=== PATIENT | female | born 1975 | race Caucasian/White ===

== ENCOUNTER 2018-10-03 14:48 | Outpatient (REF) | payer OTHER, SELFPAY ==
[2018-10-03 19:33] LABS: TSH (W/Ref FT4) 2.02 uIU/mL (0.358-3.74)
[2018-10-06 09:30] LABS: DHEA Sulfate 121 ug/dl (75-410)
[2018-10-07 16:26] LABS: Testosterone, Free 0.29 ng/dL (0.06-0.98); Testosterone, Total 8.4 ng/dL (8-60)
== END 2018-10-03 15:08 ==
LOC: NCHCN 14:48
PROVIDERS: PCP Family Medicine; Visit Provider Nurse Practitioner Family
DX: E28.2 Polycystic ovarian syndrome (principal)
CPT/HCPCS: 82627; 84402; 84403; 84443

== ENCOUNTER 2019-05-09 08:15 | Outpatient (REF) | payer OTHER, SELFPAY ==
[2019-05-09 14:11] LABS: Anion Gap 12.4 mmol/L (3-11); BUN 14 mg/dL (7-18); CO2 25.6 mmol/L (21.0-32.0); CREATININE 0.97 mg/dL (0.55-1.02); Calcium 9.1 mg/dL (8.5-10.1); Calculated LDL 107 mg/dL; Chloride 104 mmol/L (98-107); Cholesterol 205 mg/dL (50-200); Glucose 109 mg/dL (70-100); HDL Cholesterol 48 mg/dL (40-60); Potassium 4.6 mmol/L (3.5-5.1); Sodium 142 mmol/L (136-145); Triglyceride 253 mg/dL (30-150)
== END 2019-05-09 08:35 ==
LOC: NCHCN 08:15
PROVIDERS: PCP Family Medicine; Visit Provider Nurse Practitioner Family
DX: Z00.00 Encounter for general adult medical examination without abnormal findings (principal); Z13.228 Encounter for screening for other metabolic disorders; Z13.220 Encounter for screening for lipoid disorders
CPT/HCPCS: 80048; 80061; 83721

== ENCOUNTER 2019-09-07 01:53 | Outpatient (CLI) | payer OTHER, SELFPAY ==
--- NOTE | 2019-09-07 08:30 | NS.NUTBLAN_ITS ---
DESCRIPTION:? Yvrose Rey presents for nutrition consult for bariatric surgery preparation.? 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 Yvrose has been successful losing?30 pounds with weight watchers in the past.? She is currently motivated to lose weight because her body hurts, especially hip and back pain; finds it difficult to move. Yvrose admits she has always used food as a tool to deal with emotions.? She expresses concern that she does not know what she will do if she does not have that as a crutch.? She acknowledges how focused she and her family are with food. Yvrose eats no breakfast or supper. She has a large lunch with ordering out, or a sandwich with doritos, chips and dip, pepsi on occasion.? SHe snacks at work much of the day.? She has tracked her food on [employer] and found it helpful in learning what foods really are good for you. Yvrose works 5 days a week and has an overnight shift 3 nights a week as well as school aged children and her .? Her schedule does not allow her time for regular physical activity at this time although she states she is moving at work all day. Weight today: 249.8? Height 64 BMI 42.9 INTERVENTION:? Discussed strategies to improve her nutritional intake by setting boundaries about what types of foods she can eat as a way to cut back on eating so much highly processed food. She does not track her food at this time. She recognizes soda as a problem and will attempt to cut that by 1/2 this month. Discussed principals of mindful eating undistracted, slowly, out of hunger. Discussed ways to increase physical activity with chair exercises at work; walk 5 minutes at lunch, go to pool with daughter on the weekend. PLAN:? Yvrose will: begin to journal her food and hunger? consider swimming on the weekend; doing chair exercise during her day
== END 2019-09-07 02:13 ==
PROVIDERS: PCP Family Medicine; Visit Provider Dietitian, Registered
DX: Z68.41 Body mass index [BMI] 40.0-44.9, adult (principal); E66.3 Overweight; Z71.3 Dietary counseling and surveillance
CPT/HCPCS: 97802

== ENCOUNTER 2019-09-26 01:32 | Outpatient (CLI) | payer OTHER, SELFPAY ==
--- NOTE | 2019-09-26 12:20 | DI.MAMMO_ITS ---
EXAM: MAMMO SCREENING CLINICAL HISTORY: SCREENING Z12.39 TECHNIQUE: Mammograms were interpreted according to the usual protocol including computer analysis w [employer] CAD system, tomosynthesis and C-view imaging. COMPARISON: Current examination is compared with previous examination August 2017 FINDINGS: Breasts are of moderate density with fairly symmetrical distribution of fibroglandular tissue. No do minant mass or clumped microcalcification is identified in either breast. Current examination is com pared with previous examination of August 2017 and there has been no gross interval change in appea alexandra in comparison with previous study. IMPRESSION: No specific evidence of malignancy at this time. Routine screening examinations are suggested at yea rly intervals in this age group according to the ACS/ACR guidelines. Category 1, breast density categ ory BI-RADS Cat 1 - Negative Breast Density - Category B - Scattered areas of fibroglandular density
== END 2019-09-26 01:52 ==
PROVIDERS: PCP Family Medicine; Visit Provider Nurse Practitioner Family
DX: Z12.31 Encounter for screening mammogram for malignant neoplasm of breast (principal)
CPT/HCPCS: 77063; 77067

== ENCOUNTER 2019-10-04 00:38 | Outpatient (CLI) | payer OTHER, SELFPAY ==
--- NOTE | 2019-10-04 15:00 | NS.NUTBLAN_ITS ---
DESCRIPTION: Yvrose Rey presents for nutrition follow up for preparation for bariatric surgery. SInce her first visit she has stopped sugar in her morning beverage and has exchanged soda for seltzer 1-2 liters daily. She comes in with a documented 1 week food log. Food log indicates calorically dense food choices of bread or pasta iwth some protein for lunch and supper; snacks during the day of chocolate, doritos, chips, ice cream. Yvrose has not initiated any physical activity outside of her active job however reports [id number] steps some days. She is busy with appointments for psychiatry and sleep clinic. Weight today 247.6 Height: 64 inches BMI 42.5 INTERVENTION: Discussed changes she can make to improve her nutrient intake and decrease her calories. She expresses some concern regarding her ability to cope without food post-surgery. Discussed triggers for eating; availability of alternative lower calorically dense foods. Discussed coping mechanisms for stress and boredom. Discussed self talk. PLAN: Yvrose will make vegetables available during her work day for snacks; pay attention to her negative self talk We will follow up in 1 month.
== END 2019-10-04 00:58 ==
PROVIDERS: PCP Family Medicine; Visit Provider Dietitian, Registered
DX: E66.2 Morbid (severe) obesity with alveolar hypoventilation (principal); Z68.41 Body mass index [BMI] 40.0-44.9, adult; Z71.3 Dietary counseling and surveillance
CPT/HCPCS: 97803

== ENCOUNTER 2019-11-01 11:45 | Outpatient (CLI) | payer OTHER, SELFPAY ==
--- NOTE | 2019-11-01 08:30 | NS.NUTBLAN_ITS ---
DESCRIPTION: Yvrose presents for follow up nutrition consult for bariatric surgery for her 3rd visit. WEIGHT TODAY: 247.0 HEIGHT: 64 BMI 42.4 Yvrose states she was able to snack on vegetables at work in the afternoon some days, especially carrots and snowpeas. Also snacked on popcorn. Since it was the holidays it was difficult staying away from all the food brought in by patients. She has also refrained from soda and sugar in the coffee. When she goes out to eat she orders unsweetened iced tea. States she has the tools to say no, but does not use them consistently. Discussed family considerations of thin children and overweight daughter and the challenges this poses. She continues to eat about the same except for above changes. She is not tracking her food at this time. She achieves 13,000 steps on slow days at work. She is parking further away from her destination for physical activity. She states she has left hip pain in the bone and has a fear of falling this time of year. Yvrose has started to engage with on-line support groups [employer] and she has a Bariatric Mindset Success book she will be reading. 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 She has become more ready for the surgery and is looking forward to it. Discussed family food concerns and stress of meeting everyone's needs. Encouraged healthy food at all times for everyone in the home. Acknowledge challenges. Discussed how this affects her time with limited and altered foods. PLAN: Yvrose will: continue to work on food issues that will inhibit her success; she will continue to read and access on-line support. She will continue her current physical activity.
== END 2019-11-01 12:05 ==
PROVIDERS: PCP Family Medicine; Visit Provider Dietitian, Registered
DX: E66.8 Other obesity (principal); Z68.41 Body mass index [BMI] 40.0-44.9, adult; Z71.3 Dietary counseling and surveillance
CPT/HCPCS: 97803

== ENCOUNTER 2019-11-19 14:28 | Outpatient (REF) | payer OTHER, SELFPAY ==
[2019-11-19 19:51] LABS: Ferritin 50 ng/mL (8-252)
== END 2019-11-19 14:48 ==
LOC: NCHCN 14:28
PROVIDERS: PCP Family Medicine; Visit Provider Nurse Practitioner Family
DX: G47.9 Sleep disorder, unspecified (principal)
CPT/HCPCS: 82728

== ENCOUNTER 2020-04-09 08:29 | Outpatient (CLI) | payer OTHER, SELFPAY ==
--- NOTE | 2020-04-09 09:50 | DI.RAD_ITS ---
EXAM: XR HIP LT COMPLETE AP PELVIS CLINICAL HISTORY: LT HIP PAIN, M25.552. TECHNIQUE: 2D digital imaging was performed. COMPARISON: No exams were available for comparison FINDINGS: BONES: No acute fracture is present. No bony destructive lesion is seen. JOINTS: No dislocation present. SOFT TISSUE: Normal. IMPRESSION: Unremarkable radiographs of the left hip. Unremarkable radiographs of the pelvis DATA REPOSITORY: RADIATION DOSE DELIVERED:
== END 2020-04-09 08:49 ==
PROVIDERS: PCP Family Medicine; Visit Provider Nurse Practitioner
DX: M25.552 Pain in left hip (principal)
CPT/HCPCS: 73502

== ENCOUNTER 2020-05-08 10:35 | Outpatient (REF) | payer OTHER, SELFPAY ==
[2020-05-08 11:36] LABS: BUN 18 mg/dL (7-18); CREATININE 1.01 mg/dL (0.55-1.02); Calcium 9.4 mg/dL (8.5-10.1); Chloride 101 mmol/L (98-107); Estimated GFR 59.54 (mL/min/1.73m2); Glucose 124 mg/dL (74-106); Potassium 4.4 mmol/L (3.5-5.1); Sodium 137 mmol/L (136-145)
== END 2020-05-08 10:55 ==
LOC: NCHCN 10:35
PROVIDERS: PCP Family Medicine; Visit Provider Nurse Practitioner Family
DX: R73.03 Prediabetes (principal)
CPT/HCPCS: 80048

== ENCOUNTER 2020-06-17 14:13 | Outpatient (REF) | payer OTHER, SELFPAY ==
[2020-06-20 06:16] LABS: SARS-CoV-2 RNA Undetected (Undetected)
== END 2020-06-17 14:33 ==
LOC: NCHCN 14:13
PROVIDERS: PCP Family Medicine; Visit Provider Family Medicine
DX: Z11.59 Encounter for screening for other viral diseases (principal)
CPT/HCPCS: U0003

== ENCOUNTER 2020-09-11 08:15 | Outpatient (REF) | payer OTHER, SELFPAY ==
[2020-09-12 14:58] LABS: SARS-CoV-2 RNA Source Nasal/Nares
[2020-09-12 15:01] LABS: SARS-CoV-2 RNA Not Detected (NotDetected)
== END 2020-09-11 08:35 ==
LOC: NCHCN 08:15
PROVIDERS: PCP Family Medicine; Visit Provider Nurse Practitioner Family
DX: Z11.59 Encounter for screening for other viral diseases (principal)
CPT/HCPCS: U0003

== ENCOUNTER 2020-09-16 08:15 | Outpatient (REF) | payer OTHER, SELFPAY ==
[2020-09-18 18:34] LABS: Patient Race White; SARS-CoV-2 RNA Undetected (Undetected); SARS-CoV-2 Specimen Source Nasal
== END 2020-09-16 08:35 ==
LOC: NCHCN 08:15
PROVIDERS: PCP Family Medicine; Visit Provider Nurse Practitioner Family
DX: Z11.59 Encounter for screening for other viral diseases (principal)
CPT/HCPCS: U0003

== ENCOUNTER 2020-10-09 15:12 | Outpatient (REF) | payer OTHER, SELFPAY ==
[2020-10-10 01:14] LABS: COVID-19 RT-PCR UVMMC Result Negative (Negative)
== END 2020-10-09 15:32 ==
LOC: NCHCN 15:12
PROVIDERS: PCP Family Medicine; Visit Provider Nurse Practitioner Family
DX: Z20.828 Contact with and (suspected) exposure to other viral communicable diseases (principal)
CPT/HCPCS: U0003

== ENCOUNTER 2020-11-11 18:18 | Outpatient (REF) | payer OTHER, SELFPAY ==
[2020-11-13 15:10] LABS: COVID-19 RT-PCR UVMMC Result Negative (Negative)
== END 2020-11-11 18:38 ==
LOC: NCHCN 18:18
PROVIDERS: PCP Family Medicine; Visit Provider Nurse Practitioner Family
DX: Z11.52 Encounter for screening for COVID-19 (principal)
CPT/HCPCS: U0003

== ENCOUNTER 2021-03-18 12:07 | Outpatient (REF) | payer OTHER, SELFPAY ==
--- NOTE | 2021-03-18 11:00 | PAPFT_PTH ---
PATIENT: Yvrose Rey LOC: [facility]#:[id number] AGE/SX: 45/F ROOM: RE03/18/[address]: Sheri Medellin : 1975 BED: DIS: 03/18/2021 SPEC #: [id number] RECD: 03/18/21 18:03 STATUS: VERONICA KOVACS #: [id number] MAXIM: 03/18/21 11:[address]: Sheri Medellin DEPT: [facility] Cytology RECD BY: Lisa Hamilton ENTERED: 03/18/21 18:03 SP TYPE: PAPFT PAULINE DR: Kendell Franco Tissues: 1 - CX/ENDOCX FOR PAP SMEARS Procedures: PAP THIN PREP/[facility] Screening Comments: [id number]
[2021-03-18 16:18] LABS: Anion Gap 11.8 mmol/L (3-11); BUN 15 mg/dL (7-18); CO2 25.2 mmol/L (21.0-32.0); CREATININE 1.1 mg/dL (0.55-1.02); Calcium 9.3 mg/dL (8.5-10.1); Calculated LDL 98 mg/dL (<100); Chloride 102 mmol/L (98-107); Cholesterol 185 mg/dL (<200); Estimated GFR 53.71 (mL/min/1.73m2); Glucose 105 mg/dL (74-106); HDL Cholesterol 45 mg/dL (40-60); Potassium 4.6 mmol/L (3.5-5.1); Sodium 139 mmol/L (136-145); TSH (W/Ref FT4) 1.71 uIU/mL (0.36-3.74); Triglyceride 214 mg/dL (<150)
[2021-03-18 16:38] LABS: Hemoglobin A1C 5.7 % (<5.7)
== END 2021-03-18 12:08 | disposition home or self-care (01) ==
LOC: NCHCN 12:07
PROVIDERS: PCP Family Medicine; Visit Provider Nurse Practitioner Family
DX: Z00.00 Encounter for general adult medical examination without abnormal findings (principal); I10 Essential (primary) hypertension; R73.03 Prediabetes; Z13.220 Encounter for screening for lipoid disorders; Z12.4 Encounter for screening for malignant neoplasm of cervix
CPT/HCPCS: 80048; 80061; 88142; 83036; 84443

== ENCOUNTER 2021-03-19 13:50 | Outpatient (REF) | payer OTHER, SELFPAY ==
--- OUTSIDE RECORDS SUMMARY | 2021-03-19 13:54 | XMS_ITS ---
:1975 Author Care Team Providers Name Role Phone RAFITA HEATH Primary Care Provider [phone] RAFITA HEATH Referring Provider [phone] Allergies Code Code System Name Reaction Severity Status Onset NKDA ? Medications Name Status Start Date Stop Date ? ? albuterol sulfate Completed ? 09/08/2017 2 puffs as needed four times daily buspirone 10 mg tablet Completed ? 6 Take 1 tablet every day by oral route. hydrochlorothiazide 50 mg tablet Completed ? 09/08/2017 Take 1 tablet every day by oral route. lisinopril 20 mg tablet Active ? Not avai lable Take 1 tablet every day by oral route. omeprazole 40 mg capsule,delayed release Active ? Not available Take 1 capsule every day by oral route. Paxil 20 mg tablet Active ? Not available Take 1 tablet every day by oral route. Wellbutrin XL 150 mg 24 hr tablet, extended release Active ? Not available Take 1 tablet twice a day by oral route. Problems Name Status Onset Date Source ? Herpes Zoster Active 07/26/2016 ? Type 2 Diabetes Mellitus Active 07/26/2016 ? Anxiety Active 07/26/2016 ? Depressive Disorder Active 07/26/2016 ? Hypertensive Disorder Active 07/26/2016 ? Asthma Active 07/26/2016 ? Gastroesophageal Reflux Disease Active 07/26/2016 ? Chronic Dermatitis Active 07/26/2016 ? Fracture of Radial Head Active 07/26/2016 ? Environmental Allergy Active 07/26/2016 ? Procedures Date Name Performed by ? 03/15/2017 XR, Foot, 3 or More View Xray [facility] [address], [place] [address] (Work [address]) Notes: Arm Surgery Elbow Surgery Hysterectomy/bladder sling- 11/11/19 17 Results Lab Results None recorded. Past Encounters None recorded. Social History Tobacco Smoking Status Former Smoker (1/2 pack per a Notes : 09/08/17- 1/2 a pack day) Vaccine List None recorded. Plan of Care Reminders Provider Appointments None ? ? recorded. Lab None ? ? recorded. Referral None ? ? recorded. Procedures None ? ? recorded. Surgeries None ? ? recorded. Imaging None ? ? recorded. Vitals 09/08/2017 03:00PM ACUTE Height Weight BMI Blood Pressure 165.1 cm 110.68 kg 40.6 kg/m2 122/58 mm[Hg] 03/17/2017 08:45AM FOLLOW UP Height Weight BMI Blood Pressure 165.1 cm 110.68 kg 40.6 kg/m2 118/58 mm[Hg] 12/23/2016 11:15AM FOLLOW UP Height Weight BMI Blood Pressure 165.1 cm 110.68 kg 40.6 kg/m2 114/68 mm[Hg] 07/28/2016 11:30AM INJECTION Weight Blood Pressure 111.58 kg 106/62 mm[Hg]
[2021-03-19 14:51] LABS: PROTEIN 23.9 mg/dL
[2021-03-19 14:54] LABS: COMMENT (LAB VIEW ONLY) 252.71 mg/dL; Prot/Crea Ur Ratio 0.09
== END 2021-03-19 13:51 | disposition home or self-care (01) ==
LOC: NCHCN 13:50
PROVIDERS: PCP Family Medicine; Visit Provider Physician Assistant Medical
DX: R80.9 Proteinuria, unspecified (principal)
CPT/HCPCS: 82565; 84156

== ENCOUNTER 2021-05-08 03:21 | Outpatient (CLI) | payer OTHER, SELFPAY ==
--- NOTE | 2021-05-08 | DI.MAMMO_ITS ---
Exam(s) MAMMO SCREENING EXAM: MAMMO SCREENING CLINICAL HISTORY: SCREENING, Z12.39 TECHNIQUE: Mammograms were interpreted according to the usual protocol including computer analysis w [employer] CAD system, tomosynthesis and C-view imaging. COMPARISON: 2017 and 2018 FINDINGS: The breasts are composed of scattered fibroglandular densities, Breast Density category B. No suspicious masses or suspicious microcalcifications are seen. No skin thickening or abnormal axillary lymph nodes are seen. There has been no significant change from prior exams. IMPRESSION: BI-RADS Category 1, Negative mammogram Yearly screening mammography is recommended. Breast Density - Category B, scattered fibroglandular densities. A negative radiographic report should not delay biopsy if a dominant or clinically suspicious mass is present. Up to ten percent of cancers are not identified on mammography. A negative report may reinforce clinical impression. Adenosis and dense breasts may obscure an underlying neoplasm. False positive reports average 6 to 10%. Patient will receive a letter notifying them of these results.
== END 2021-05-08 03:41 ==
PROVIDERS: PCP Family Medicine; Visit Provider Nurse Practitioner Family
DX: Z12.31 Encounter for screening mammogram for malignant neoplasm of breast (principal); R92.8 Other abnormal and inconclusive findings on diagnostic imaging of breast
CPT/HCPCS: 77063; 77067

== ENCOUNTER 2021-06-04 14:18 | Outpatient (REF) | payer OTHER, SELFPAY ==
[2021-06-05 11:48] LABS: COVID-19 RT-PCR UVMMC Result Negative (Negative)
== END 2021-06-04 14:19 | disposition home or self-care (01) ==
LOC: LBN 14:18
PROVIDERS: PCP Family Medicine; Visit Provider Physician Assistant Medical
DX: Z20.822 Contact with and (suspected) exposure to COVID-19 (principal)
CPT/HCPCS: U0003

== ENCOUNTER 2021-06-15 19:12 | Outpatient (REF) | payer OTHER, SELFPAY ==
[2021-06-17 13:56] LABS: COVID-19 RT-PCR UVMMC Result Negative (Negative)
== END 2021-06-15 19:13 | disposition home or self-care (01) ==
LOC: LBN 19:12
PROVIDERS: PCP Family Medicine; Visit Provider Nurse Practitioner Family
DX: Z20.822 Contact with and (suspected) exposure to COVID-19 (principal)
CPT/HCPCS: U0003

== ENCOUNTER 2021-06-24 18:28 | Outpatient (REF) | payer OTHER, SELFPAY ==
[2021-06-25 20:23] LABS: COVID-19 RT-PCR UVMMC Result Negative (Negative)
== END 2021-06-24 18:29 | disposition home or self-care (01) ==
LOC: LBN 18:28
PROVIDERS: PCP Family Medicine; Visit Provider Nurse Practitioner Family
DX: Z11.52 Encounter for screening for COVID-19 (principal); Z20.822 Contact with and (suspected) exposure to COVID-19
CPT/HCPCS: U0003

== ENCOUNTER 2021-07-03 17:36 | Outpatient (REF) | payer OTHER, SELFPAY ==
[2021-07-04 14:28] LABS: COVID-19 RT-PCR UVMMC Result Negative (Negative)
== END 2021-07-03 17:37 | disposition home or self-care (01) ==
LOC: LBN 17:36
PROVIDERS: PCP Family Medicine; Visit Provider Physician Assistant
DX: Z20.822 Contact with and (suspected) exposure to COVID-19 (principal)
CPT/HCPCS: U0003

== ENCOUNTER 2021-07-13 11:58 | Outpatient (REF) | payer OTHER, SELFPAY ==
[2021-07-14 00:18] LABS: COVID-19 RT-PCR UVMMC Result Negative (Negative)
== END 2021-07-13 11:59 | disposition home or self-care (01) ==
LOC: LBN 11:58
PROVIDERS: PCP Family Medicine; Visit Provider Nurse Practitioner Family
DX: Z20.822 Contact with and (suspected) exposure to COVID-19 (principal)
CPT/HCPCS: U0003

== ENCOUNTER 2021-07-17 18:08 | Outpatient (REF) | payer OTHER, SELFPAY ==
[2021-07-19 16:10] LABS: COVID-19 RT-PCR UVMMC Result Negative (Negative)
== END 2021-07-17 18:09 | disposition home or self-care (01) ==
LOC: LBN 18:08
PROVIDERS: PCP Family Medicine; Visit Provider Physician Assistant Medical
DX: Z20.822 Contact with and (suspected) exposure to COVID-19 (principal)
CPT/HCPCS: U0003

== ENCOUNTER 2021-07-30 11:15 | Outpatient (REF) | payer OTHER, SELFPAY ==
[2021-07-31 01:58] LABS: COVID-19 RT-PCR UVMMC Result Negative (Negative)
== END 2021-07-30 11:16 | disposition home or self-care (01) ==
LOC: NCHCN 11:15
PROVIDERS: PCP Family Medicine; Visit Provider Physician Assistant Medical
DX: Z20.822 Contact with and (suspected) exposure to COVID-19 (principal)
CPT/HCPCS: U0003

== ENCOUNTER 2021-08-13 19:04 | Outpatient (REF) | payer OTHER, SELFPAY ==
[2021-08-15 14:03] LABS: COVID-19 RT-PCR UVMMC Result Negative (Negative)
== END 2021-08-13 19:05 | disposition home or self-care (01) ==
LOC: LBN 19:04
PROVIDERS: PCP Family Medicine; Visit Provider Physician Assistant Medical
DX: Z20.822 Contact with and (suspected) exposure to COVID-19 (principal)
CPT/HCPCS: U0003

== ENCOUNTER 2021-08-27 16:20 | Outpatient (REF) | payer OTHER, SELFPAY ==
[2021-08-28 02:53] LABS: COVID-19 RT-PCR UVMMC Result Negative (Negative)
== END 2021-08-27 16:21 | disposition home or self-care (01) ==
LOC: LBN 16:20
PROVIDERS: PCP Family Medicine; Visit Provider Nurse Practitioner Family
DX: Z20.822 Contact with and (suspected) exposure to COVID-19 (principal)
CPT/HCPCS: U0003

== ENCOUNTER 2021-09-16 22:15 | Outpatient (REF) | payer OTHER, SELFPAY ==
[2021-09-18 15:38] LABS: COVID-19 RT-PCR UVMMC Result Negative (Negative)
== END 2021-09-16 22:16 | disposition home or self-care (01) ==
LOC: LBN 22:15
PROVIDERS: PCP Family Medicine; Visit Provider Physician Assistant Medical
DX: Z20.822 Contact with and (suspected) exposure to COVID-19 (principal)
CPT/HCPCS: U0003

== ENCOUNTER 2021-10-06 09:40 | Outpatient (REF) | payer OTHER, SELFPAY ==
[2021-10-07 01:41] LABS: COVID-19 RT-PCR UVMMC Result Negative (Negative)
== END 2021-10-06 09:41 | disposition home or self-care (01) ==
LOC: LBN 09:40
PROVIDERS: PCP Family Medicine; Visit Provider Nurse Practitioner Family
DX: Z20.822 Contact with and (suspected) exposure to COVID-19 (principal)
CPT/HCPCS: U0003